=== PATIENT | female | born 1945 | race Caucasian/White ===

== ENCOUNTER 2016-09-12 17:49 | Outpatient (CLI) | payer OTHER | END 2016-09-12 23:00 | LOC: LAB SRH 17:49 | DX: Z00.00 Encounter for general adult medical examination without abnormal findings (principal) | CPT/HCPCS: 90074; 90100; 91504; 92690; 93140; 95059 ==

== ENCOUNTER 2016-09-20 16:07 | Outpatient (CLI) | payer OTHER ==
--- NOTE | 2016-09-20 17:17 | DIAGNOSTIC IMAGING REPORT ---
PROCEDURE: US BILATERAL CAROTID DOPPLER INDICATION: BRUIT TECHNIQUE: Color Doppler duplex imaging of the carotid and vertebral vessels. COMPARISON: None. FINDINGS: Right carotid system: No significant stenosis visualized. The waveforms are normal. Minimal plaque. Left carotid system: Minimal plaque. Internal carotid stenosis of less than 5-15%. Vertebral System: Antegrade vertebral artery flow bilaterally. Right common carotid artery peak systolic velocity 93.8 cm/second. Right internal carotid artery peak systolic velocity 83.4 cm/second. Right external carotid artery peak systolic velocity 82.4 cm/second. Right otkmmkap-ul-ctjbxk carotid artery ratio 1.1 Right vertebral artery peak systolic velocity 35 cm/second. Left common carotid artery peak systolic velocity 85.6 cm/second. Left internal carotid artery peak systolic velocity 90.6 cm/second. Left external carotid artery peak systolic velocity 110.0 cm/second. Left zrillvkp-cn-rtfiqo carotid artery ratio 1.3 Left vertebral artery peak systolic velocity 66.3 cm/second. IMPRESSION: 1. No hemodynamically significant stenosis in either carotid system. 2. Antegrade vertebral artery flow bilaterally. 3. Cardiac arrhythmia. Prominent lymph nodes bilaterally measuring 16-18 mm. Velocity criteria are extrapolated from diameter data as defined by the Society of Radiologists in Ultrasound Consensus Conference, Radiology 2003; 229; 340-346.
--- NOTE | 2016-09-20 17:17 | DIAGNOSTIC IMAGING REPORT ---
PROCEDURE: US BILATERAL CAROTID DOPPLER INDICATION: BRUIT TECHNIQUE: Color Doppler duplex imaging of the carotid and vertebral vessels. COMPARISON: None. FINDINGS: Right carotid system: No significant stenosis visualized. The waveforms are normal. Minimal plaque. Left carotid system: Minimal plaque. Internal carotid stenosis of less than 5-15%. Vertebral System: Antegrade vertebral artery flow bilaterally. Right common carotid artery peak systolic velocity 93.8 cm/second. Right internal carotid artery peak systolic velocity 83.4 cm/second. Right external carotid artery peak systolic velocity 82.4 cm/second. Right abvmypac-ct-lrfcpc carotid artery ratio 1.1 Right vertebral artery peak systolic velocity 35 cm/second. Left common carotid artery peak systolic velocity 85.6 cm/second. Left internal carotid artery peak systolic velocity 90.6 cm/second. Left external carotid artery peak systolic velocity 110.0 cm/second. Left fvtptmqd-xm-mrbsvq carotid artery ratio 1.3 Left vertebral artery peak systolic velocity 66.3 cm/second. IMPRESSION: 1. No hemodynamically significant stenosis in either carotid system. 2. Antegrade vertebral artery flow bilaterally. 3. Cardiac arrhythmia. Prominent lymph nodes bilaterally measuring 16-18 mm. Velocity criteria are extrapolated from diameter data as defined by the Society of Radiologists in Ultrasound Consensus Conference, Radiology 2003; 229; 340-346.
--- NOTE | 2016-09-20 17:18 | DIAGNOSTIC IMAGING REPORT ---
PROCEDURE: DEXA BONE DENSITY STUDY CLINICAL INDICATION: POSTMENOPAUSAL COMPARISON: None. FINDINGS: LUMBAR SPINE: Bone mineral density 0.903 g/cm2, T score -1.3 osteopenia LEFT HIP: Bone mineral density 0.735 g/cm2, T score -1.7 osteopenia LEFT FEMORAL NECK: Bone mineral density 0.604 g/cm2, T score -2.2 osteopenia FRACTURE RISK CALCULATION ( when applicable): 10-year fracture risk of a major osteoporotic fracture 13% and of a hip fracture 2.8% (T score greater or equal to -1.0 to: NORMAL) (T score from -1.1 to -2.4: OSTEOPENIA) (T score ess than or equal to -2.5: OSTEOPOROSIS) IMPRESSION: 1. Osteopenia spine hip and femoral neck with a 10-year fracture risk of 13% and a hip fracture risk of 2.8%
== END 2016-09-20 23:00 ==
LOC: US SRH 16:07
DX: Z78.0 Asymptomatic menopausal state (principal); R55 Syncope and collapse; R09.89 Other specified symptoms and signs involving the circulatory and respiratory systems; M85.88 Other specified disorders of bone density and structure, other site; M85.852 Other specified disorders of bone density and structure, left thigh